=== PATIENT | male | born 1980 | race Caucasian/White ===

== ENCOUNTER 2018-01-09 23:54 | Emergency (ER) | payer SELFPAY ==
[2018-01-10 00:16] LABS: BILIRUBIN,URINE NEGATIVE (NEGATIVE); CLARITY,URINE VERY CLOUDY; COLOR,URINE AMBER; GLUCOSE, URINE (UA) NEGATIVE (NEGATIVE); KETONES,URINE NEGATIVE (NEGATIVE); LEUKOCYTE ESTERASE ,URINE 1+ (NEGATIVE); NITRITE,URINE NEGATIVE (NEGATIVE); PH,URINE 7 (5-9); PROTEIN,URINE NEGATIVE (NEGATIVE); UROBILINOGEN,URINE NORMAL (NORMAL)
[2018-01-10 00:25] LABS: BACTERIA,URINE FEW /HPF
[2018-01-10 00:26] LABS: BASOPHILS % (AUTO) 0 % (0-10); EOSINOPHILS # (AUTO) 0.1 10^3/uL (0.0-0.3); EOSINOPHILS % (AUTO) 1 % (0-10); HEMATOCRIT 43 % (40-54); HEMOGLOBIN 14.7 G/DL (13.3-17.7); LYMPHOCYTES # (AUTO) 2.6 X 10^3 (1.0-4.0); LYMPHOCYTES % (AUTO) 14 % (12-44); MEAN CORPUSCULAR HEMOGLOBIN 32 PG (25-34); MEAN CORPUSCULAR HGB CONC 35 G/DL (32-36); MEAN CORPUSCULAR VOLUME 92 FL (80-99); MEAN PLATELET VOLUME 9.8 FL (7.4-10.4); MONOCYTES # (AUTO) 1.2 X 10^3 (0.0-1.0); MONOCYTES % (AUTO) 6 % (0-12); NEUTROPHILS # (AUTO) 14.7 X 10^3 (1.8-7.8); NEUTROPHILS % (AUTO) 79 % (42-75); PLATELET COUNT 356 10^3/uL (130-400); RED BLOOD COUNT 4.63 10^6/uL (4.35-5.85); WHITE BLOOD COUNT 18.7 10^3/uL (4.3-11.0)
[2018-01-10 00:32] LABS: AMPHETAMINE SCREEN, URINE NEGATIVE (NEGATIVE); BARBITURATE SCREEN URINE NEGATIVE (NEGATIVE); BENZODIAZEPINES SCREEN URINE NEGATIVE (NEGATIVE); CANNABINOID SCREEN, URINE POSITIVE (NEGATIVE); COCAINE SCREEN URINE NEGATIVE (NEGATIVE); METHADONE STAT NEGATIVE (NEGATIVE); METHAMPHETAMINE SCREEN URINE S NEGATIVE (NEGATIVE); OPIATE SCREEN URINE NEGATIVE (NEGATIVE); OXYCODONE STAT NEGATIVE (NEGATIVE); PROPOXYPHENE STAT NEGATIVE (NEGATIVE); TRICYCLIC ANTIDEPRESSANTS SCRE NEGATIVE (NEGATIVE)
[2018-01-10 00:47] LABS: ALANINE AMINOTRANSFERASE 14 U/L (0-55); ALBUMIN 4.3 GM/DL (3.2-4.5); ALKALINE PHOSPHATASE 45 U/L (40-136); BILIRUBIN,TOTAL 0.5 MG/DL (0.1-1.0); BUN/CREATININE RATIO 12; CARBON DIOXIDE 20 MMOL/L (21-32); CHLORIDE 110 MMOL/L (98-107); CREATININE SERUM 0.74 MG/DL (0.60-1.30); GFR ESTIMATED > 60; GLUCOSE 109 MG/DL (70-105); MAGNESIUM 2.4 MG/DL (1.8-2.4); POTASSIUM 3.8 MMOL/L (3.6-5.0); SODIUM 141 MMOL/L (135-145); TOTAL PROTEIN 6.8 GM/DL (6.4-8.2)
[2018-01-10 00:49] LABS: LYMPHOCYTES % (MANUAL) 12 %; MONOCYTES % (MANUAL) 7 %; NEUTROPHILS % (MANUAL) 81 %
--- NOTE | 2018-01-10 01:09 | ED Respiratory ---
General Stated Complaint: SOB,CP Source: patient (VAGUE AND DIFFICULT HISTORIAN, AND EXTREMELY INCONSISTENT INFORMATION TO MY SELF AND NURSING STAFF. ), EMS History of Present Illness Date Seen by Provider: Jan 09, 2018 Time Seen by Provider: 23:57 Initial Comments PT ARRIVES VIA EMS PT STATES HE "TOOK 1 SHOT OF VODKA" AT 1300 TODAY, AND STATES "IT SENT ME INTO A COUGHING FIT" STATES HE HAS BEEN COUGHING ALL DAY--NON-PRODUCTIVE EMS GAVE DUONEB ENROUTE, EVEN THOUGH PT REPORTEDLY HAD CLEAR LUNG SOUNDS AT SCENE. PT STATES HE FEELS BETTER O2 SATS 97-99% ON ROOM AIR. PT DOES NOT VOLUNTARILY C/O CHEST PAIN OR SHORTNESS OF BREATH, UNTIL I DIRECTLY ASKED HIM IF HE HAD CHEST PAIN OR SHORTNESS OF BREATH AND HE STATES HE HAS " BOTH REALLY BAD" PT TELLS ME ADAMANTLY SEVERAL TIMES THAT HE HAS NEVER HAD ANY HISTORY OF ANY LUNG PROBLEMS, AND SPECIFICALLY DENIES HISTORY OF ASTHMA, COPD/EMPHYSEMA, BRONCHITIS OR PNEUMONIA. PT TOLD RN THAT HE DOES HAVE A HISTORY OF ASTHMA PT CLAIMS THAT HE HAS NEVER BEEN PRESCRIBED OR USED AN INHALER, DESPITE A DIAGNOSIS OF "ASTHMA" PT CONTINUES TO SMOKE 1 PPD PT ALSO HAS HISTORY OF ALCOHOL ABUSE--STATES HE HAS NOT HAD ANY ALCOHOL RECENTLY BUT NORMALLY DRINKS 1/5 OF VODKA A DAY. PT ADAMANTLY DENIES ANY HISTORY AT ALL OF DRUG USE TO ME, BUT ADMITS TO DRUG USE TO RN. PT ALSO STATES THAT HE WAS DIAGNOSED WITH "LUNG CANCER" AT [facility] 2 WEEKS AGO, BUT WAS NOT GIVEN ANY MEDICATIONS, OR REFERRED TO ANY DR FOR THIS PROBLEM. PT STATES HE "JUST SHOWED UP HERE 3 WEEKS AGO" --FROM [place], [place]. PT STATES HE CAME HERE TO SEE HIS "" Allergies and Home Medications Allergies Coded Allergies: No Allergy Information Available (Unverified , 01/09/18) Patient Home Medication List Home Medication List Reviewed: Yes Review of Systems Review of Systems Constitutional: no symptoms reported; No fever EENTM: no symptoms reported Respiratory: see HPI, cough, short of breath, wheezing Cardiovascular: see HPI, chest pain Gastrointestinal: no symptoms reported; No nausea, No vomiting Genitourinary: no symptoms reported Musculoskeletal: no symptoms reported Skin: no symptoms reported Psychiatric/Neurological: No Symptoms Reported Hematologic/Lymphatic: No Symptoms Reported Immunological/Allergic: no symptoms reported Past Xzfvwiy-Pybkzi-Itaeqt Hx Patient Social History Alcohol Use: Regular Use (1/5 VODKA/DAY) Recreational Drug Use: Yes (TESTED + FOR THC 01/10/18) Drug of Choice: THC Smoking Status: Current Everyday Smoker (1 PPD) Type Used: Cigarettes (1 PPD) Recent Foreign Travel: No Contact w/Someone Who Travel: No Past Medical History Surgeries: Yes Gallbladder Respiratory: Yes Asthma, COPD Cardiac: No Neurological: No Genitourinary: No Gastrointestinal: No Musculoskeletal: No Endocrine: No Psychosocial: No Integumentary: No Blood Disorders: No Physical Exam Capillary Refill : Height: '" Weight: lbs. oz. kg; BMI Method: General Appearance: WD/WN, no apparent distress, other (DOES NOT MAKE EYE CONTACT AT ANY TIME DURING ER STAY AND MOSTLY KEEPS EYES CLOSED. PT REEKS OF CIGARETTES. DOES NOT APPEAR TO BE IN ANY DISCOMFORT WHATSOEVER. NO COUGH NOTED AT ANY TIME. ) HEENT: PERRL/EOMI Neck: normal inspection Respiratory: chest non-tender, normal breath sounds, no respiratory distress, no accessory muscle use Cardiovascular: normal peripheral pulses, regular rate, rhythm, no edema, no JVD, no murmur Gastrointestinal: normal bowel sounds, non tender Extremities: normal range of motion, non-tender, normal inspection, no pedal edema, no calf tenderness, normal capillary refill Neurologic/Psychiatric: invasive cardiovascular technologist II-XII nml as tested, no motor/sensory deficits, alert, oriented x 3 Skin: normal color, warm/dry Progress/Results/Core Measures Suspected Sepsis SIRS Temperature: Pulse: Respiratory Rate: Laboratory Tests 01/09/18 00:16: White Blood Count 18.7H Blood Pressure / Mean: Laboratory Tests 01/09/18 00:16: Creatinine 0.74, Platelet Count 356, Total Bilirubin 0.5 Results/Orders Lab Results Laboratory Tests Test 01/09/18 00:05 01/09/18 00:16 Range/Units Urine Color HUGO H Urine Clarity VERY CLOUDY H Urine pH 7 5-9 Urine Specific [place] 1.010 L 1.016-1.022 Urine Protein NEGATIVE NEGATIVE Urine Glucose (UA) NEGATIVE NEGATIVE Urine Ketones NEGATIVE NEGATIVE Urine Nitrite NEGATIVE NEGATIVE Urine Bilirubin NEGATIVE NEGATIVE Urine Urobilinogen NORMAL NORMAL MG/DL Urine Leukocyte Esterase 1+ H NEGATIVE Urine RBC (Auto) NEGATIVE NEGATIVE Urine RBC NONE /HPF Urine WBC 10-25 H /HPF Urine Squamous Epithelial Cells 2-5 /HPF Urine Crystals NONE /LPF Urine Bacteria FEW H /HPF Urine Casts NONE /LPF Urine Mucus SMALL H /LPF Urine Culture Indicated YES Urine Opiates Screen NEGATIVE NEGATIVE Urine Oxycodone Screen NEGATIVE NEGATIVE Urine Methadone Screen NEGATIVE NEGATIVE Urine Propoxyphene Screen NEGATIVE NEGATIVE Urine Barbiturates Screen NEGATIVE NEGATIVE Ur Tricyclic Antidepressants Screen NEGATIVE NEGATIVE Urine Phencyclidine Screen NEGATIVE NEGATIVE Urine Amphetamines Screen NEGATIVE NEGATIVE Urine Methamphetamines Screen NEGATIVE NEGATIVE Urine Benzodiazepines Screen NEGATIVE NEGATIVE Urine Cocaine Screen NEGATIVE NEGATIVE Urine Cannabinoids Screen POSITIVE H NEGATIVE White Blood Count 18.7 H 4.3-11.0 10^3/uL Red Blood Count 4.63 4.35-5.85 10^6/uL Hemoglobin 14.7 13.3-17.7 G/DL Hematocrit 43 40-54 % Mean Corpuscular Volume 92 80-99 FL Mean Corpuscular Hemoglobin 32 25-34 PG Mean Corpuscular Hemoglobin Concent 35 32-36 G/DL Red Cell Distribution Width 14.0 10.0-14.5 % Platelet Count 356 130-400 10^3/uL Mean Platelet Volume 9.8 7.4-10.4 FL Neutrophils (%) (Auto) 79 H 42-75 % Lymphocytes (%) (Auto) 14 12-44 % Monocytes (%) (Auto) 6 0-12 % Eosinophils (%) (Auto) 1 0-10 % Basophils (%) (Auto) 0 0-10 % Neutrophils # (Auto) 14.7 H 1.8-7.8 X 10^3 Lymphocytes # (Auto) 2.6 1.0-4.0 X 10^3 Monocytes # (Auto) 1.2 H 0.0-1.0 X 10^3 Eosinophils # (Auto) 0.1 0.0-0.3 10^3/uL Basophils # (Auto) 0.0 0.0-0.1 10^3/uL Neutrophils % (Manual) 81 % Lymphocytes % (Manual) 12 % Monocytes % (Manual) 7 % Sodium Level 141 135-145 MMOL/L Potassium Level 3.8 3.6-5.0 MMOL/L Chloride Level 110 H 98-107 MMOL/L Carbon Dioxide Level 20 L 21-32 MMOL/L Anion Gap 11 5-14 MMOL/L Blood Urea Nitrogen 9 7-18 MG/DL Creatinine 0.74 0.60-1.30 MG/DL Estimat Glomerular Filtration Rate > 60 BUN/Creatinine Ratio 12 Glucose Level 109 H 70-105 MG/DL Calcium Level 9.0 8.5-10.1 MG/DL Corrected Calcium 8.8 8.5-10.1 MG/DL Magnesium Level 2.4 1.8-2.4 MG/DL Total Bilirubin 0.5 0.1-1.0 MG/DL Aspartate Amino Transf (AST/SGOT) 22 5-34 U/L Alanine Aminotransferase (ALT/SGPT) 14 0-55 U/L Alkaline Phosphatase 45 40-136 U/L Troponin I < 0.30 <0.30 NG/ML B-Type Natriuretic Peptide 40.6 <100.0 PG/ML Total Protein 6.8 6.4-8.2 GM/DL Albumin 4.3 3.2-4.5 GM/DL Serum Alcohol < 10 <10 MG/DL My Orders Orders - TEE LAZO DO Saline Lock/Iv-Start (01/09/18 23:58) Ekg Tracing (01/09/18 23:58) Monitor-Rhythm Ecg Trace Only (01/09/18 23:58) Alcohol (01/09/18 23:58) BNP (01/09/18 23:58) Cbc With Automated Diff (01/09/18 23:58) Comprehensive Metabolic Panel (01/09/18 23:58) Drug Screen Stat (Urine) (01/09/18 23:58) Magnesium (01/09/18 23:58) Troponin I (01/09/18 23:58) Ua Culture If Indicated (01/09/18 23:58) Blood Culture (01/09/18 23:58) Chest Pa/Lat (2 View) (01/10/18 00:01) Urine Culture (01/09/18 00:05) Manual Differential (01/09/18 00:16) Vital Signs/I&O Capillary Refill : Progress Note : Progress Note PT HAD NO COUGH OR SHORTNESS OF BREATH OR CHEST PAIN AT ANY TIME DURING ER STAY FEMALE S.O. ARRIVES LATER AND IS IN AND OUT OF PT'S ROOM, AND IN AND OUT OF ER MULTIPLE TIMES THROUGHOUT PT'S STAY. CRITICAL PT IN ER, AND PT DECIDED TO SIGN OUT AMA, PRIOR TO MY REVIEWING ALL OF HIS TEST RESULTS WITH HIM. PT LEFT WITH FEMALE S.O. ECG Initial ECG Impression Date: Jan 10, 2018 Initial ECG Impression Time: 00:11 Initial ECG Rate: 69 Initial ECG Rhythm: Normal Sinus Initial ECG Comparisson: No Previous ECG Available Diagnostic Imaging Comments CXR--NO ACUTE PROCESS, PENDING RADIOLOGIST REVIEW Reviewed: Reviewed by Me Departure Impression Primary Impression: Left against medical advice Disposition: 07 AGAINST MEDICAL ADVICE Condition: Against Medical Advice Departure-Patient Inst. Referrals: UNKNOWN (PCP/Family) Primary Care Physician TEE LAZO DO Jan 10, 2018 01:09
--- NOTE | 2018-01-10 06:39 | Diagnostic Imaging Report ---
INDICATION: Cough and congestion. Portable chest 1:09 AM FINDINGS: Heart size and pulmonary vascularity are normal. Lungs are clear. There are no effusions or pneumothoraces. IMPRESSION: Negative chest. Dictated by: Dictated on workstation # [id number]
== END 2018-01-10 02:25 | disposition left against medical advice (07) ==
LOC: ER 23:57
DX: R06.02 Shortness of breath (principal); R07.1 Chest pain on breathing; R05 Cough; C34.90 Malignant neoplasm of unspecified part of unspecified bronchus or lung; J44.9 Chronic obstructive pulmonary disease, unspecified; F12.10 Cannabis abuse, uncomplicated; F17.210 Nicotine dependence, cigarettes, uncomplicated
CPT/HCPCS: 36415; 71046; 80053; 80306; 80320; 81000; 83735; 83880; 84484; 85007; 85027; 87040; 87077; 87088; 93005

== ENCOUNTER 2018-01-22 18:24 | Emergency (ER) | payer SELFPAY ==
[~2018-01-22] VITALS: Ht 180.3 cm; Wt 93.4 kg
[2018-01-22 18:59] LABS: BASOPHILS # (AUTO) 0.1 10^3/uL (0.0-0.1); BASOPHILS % (AUTO) 0 % (0-10); EOSINOPHILS # (AUTO) 0.2 10^3/uL (0.0-0.3); EOSINOPHILS % (AUTO) 1 % (0-10); HEMATOCRIT 46 % (40-54); HEMOGLOBIN 16.3 G/DL (13.3-17.7); LYMPHOCYTES # (AUTO) 3.6 X 10^3 (1.0-4.0); LYMPHOCYTES % (AUTO) 24 % (12-44); MEAN CORPUSCULAR HEMOGLOBIN 32 PG (25-34); MEAN CORPUSCULAR HGB CONC 35 G/DL (32-36); MEAN CORPUSCULAR VOLUME 92 FL (80-99); MEAN PLATELET VOLUME 9.4 FL (7.4-10.4); MONOCYTES # (AUTO) 1.4 X 10^3 (0.0-1.0); MONOCYTES % (AUTO) 9 % (0-12); NEUTROPHILS % (AUTO) 66 % (42-75); PLATELET COUNT 383 10^3/uL (130-400); RED BLOOD COUNT 5.06 10^6/uL (4.35-5.85); RED CELL DISTRIBUTION WIDTH 14.1 % (10.0-14.5); WHITE BLOOD COUNT 15.2 10^3/uL (4.3-11.0)
[2018-01-22] MEDS ORDERED: PANTOPRAZOLE 40 MG (PROTONIX) VIAL IV ONE (19:00)
[2018-01-22] MEDS ORDERED: ORPHENADRINE 60 MG/2 ML (NORFLEX) AMP IV ONE (19:00)
[2018-01-22] MEDS ORDERED: ONDANSETRON 4 MG/2 ML (SDV) Z0FRAN IVP ONE (19:00)
[2018-01-22] MEDS ORDERED: NS IV 1000 ML 1,000 ML IV SCH (19:00)
--- NOTE | 2018-01-22 19:00 | ED General ---
General Chief Complaint: Abdominal/GI Problems Stated Complaint: VOMITING/L HIP PAIN Nursing Triage Note: PT PRESENTS TO ER WITH COMPLAINT OF LEFT HIP PAIN AND NAUSEA/VOMITING. Nursing Sepsis Screen: No Definite Risk Source of Information: Patient Exam Limitations: No Limitations History of Present Illness Date Seen by Provider: Jan 22, 2018 Time Seen by Provider: 18:56 Initial Comments To ER accompanied by his and his 's cousin with reports of nausea vomiting hematemesis and diarrhea since this morning. The symptoms began at about 6 AM. He had some alcohol to drink last night but that is the only time he ever drinks and he has not had alcohol for very long time prior to this according to his . He also has left hip pain that he awakened with this morning. The pain is anterior lateral left hip. No known injury. Also believes his asthma is flaring up as he feels more short of breath. However, immediately after checking in with the registration desk he went outside to smoke a cigarette. Timing/Duration: 12-24 Hours Severity: Moderate Associated Systoms: Nausea/Vomiting Allergies and Home Medications Allergies Coded Allergies: No Allergy Information Available (Unverified , 01/09/18) Patient Home Medication List Home Medication List Reviewed: Yes Review of Systems Review of Systems Constitutional: see HPI EENTM: see HPI Respiratory: no symptoms reported Cardiovascular: no symptoms reported Gastrointestinal: diarrhea, nausea, vomiting, other (hematemesis) Genitourinary: no symptoms reported Musculoskeletal: see HPI, joint pain Skin: no symptoms reported Psychiatric/Neurological: No Symptoms Reported Past Vaxbbtz-Clknzu-Dceloo Hx Patient Social History Alcohol Use: Occasionally Uses Recreational Drug Use: No Drug of Choice: THC Smoking Status: Current Everyday Smoker Type Used: Cigarettes Recent Foreign Travel: No Contact w/Someone Who Travel: No Recent Infectious Disease Expo: No Immunizations Up To Date Tetanus Booster (TDap): Unknown PED Vaccines UTD: Yes Past Medical History Surgeries: Yes Gallbladder Respiratory: Yes Asthma, COPD Cardiac: No Neurological: No Genitourinary: No Gastrointestinal: No Musculoskeletal: No Endocrine: No Psychosocial: Yes Integumentary: No Blood Disorders: No Physical Exam Vital Signs Vital Signs - First Documented 01/22/18 18:42 Temp 99.6 Pulse 88 Resp 20 B/P (MAP) 140/95 (110) Pulse Ox 96 O2 Delivery Room Air Capillary Refill : Less Than 3 Seconds Height, Weight, BMI Height: 5'11.00" Weight: 206lbs. oz. 93.228778vb; BMI Method:Stated General Appearance: No Apparent Distress, WD/WN Eyes: Bilateral Eye Normal Inspection, Bilateral Eye PERRL, Bilateral Eye EOMI HEENT: PERRL/EOMI, TMs Normal, Normal ENT Inspection, Pharynx Normal Neck: Full Range of Motion, Normal Inspection Respiratory: No Rhonci, No Stridor, No Wheezing Cardiovascular: Regular Rate, Rhythm, Normal Peripheral Pulses Gastrointestinal: Normal Bowel Sounds, Soft, Tenderness Extremity: Normal Capillary Refill, Normal Inspection Neurologic/Psychiatric: Alert, Oriented x3 Skin: Normal Color, Warm/Dry Progress/Results/Core Measures Suspected Sepsis Recent Fever Within 48 Hours: No Infection Criteria Present: None New/Unexplained Altered Menta: No Sepsis Screen: No Definite Risk SIRS Temperature:99.6 Pulse: 88 Respiratory Rate: 20 Laboratory Tests 01/22/18 18:52: White Blood Count 15.2H Blood Pressure 140 /95 Mean: 110 Laboratory Tests 01/22/18 18:52: Creatinine 0.99, INR Comment 1.0, Platelet Count 383, Total Bilirubin 0.6 Results/Orders Lab Results Laboratory Tests Test 01/22/18 18:52 01/22/18 19:31 Range/Units White Blood Count 15.2 H 4.3-11.0 10^3/uL Red Blood Count 5.06 4.35-5.85 10^6/uL Hemoglobin 16.3 13.3-17.7 G/DL Hematocrit 46 40-54 % Mean Corpuscular Volume 92 80-99 FL Mean Corpuscular Hemoglobin 32 25-34 PG Mean Corpuscular Hemoglobin Concent 35 32-36 G/DL Red Cell Distribution Width 14.1 10.0-14.5 % Platelet Count 383 130-400 10^3/uL Mean Platelet Volume 9.4 7.4-10.4 FL Neutrophils (%) (Auto) 66 42-75 % Lymphocytes (%) (Auto) 24 12-44 % Monocytes (%) (Auto) 9 0-12 % Eosinophils (%) (Auto) 1 0-10 % Basophils (%) (Auto) 0 0-10 % Neutrophils # (Auto) 10.0 H 1.8-7.8 X 10^3 Lymphocytes # (Auto) 3.6 1.0-4.0 X 10^3 Monocytes # (Auto) 1.4 H 0.0-1.0 X 10^3 Eosinophils # (Auto) 0.2 0.0-0.3 10^3/uL Basophils # (Auto) 0.1 0.0-0.1 10^3/uL Neutrophils % (Manual) 72 % Lymphocytes % (Manual) 26 % Monocytes % (Manual) 0 % Eosinophils % (Manual) 2 % Basophils % (Manual) 0 % Band Neutrophils 0 % Blood Morphology Comment NORMAL Prothrombin Time 13.5 12.2-14.7 SEC INR Comment 1.0 0.8-1.4 Sodium Level 140 135-145 MMOL/L Potassium Level 3.8 3.6-5.0 MMOL/L Chloride Level 107 98-107 MMOL/L Carbon Dioxide Level 21 21-32 MMOL/L Anion Gap 12 5-14 MMOL/L Blood Urea Nitrogen 23 H 7-18 MG/DL Creatinine 0.99 0.60-1.30 MG/DL Estimat Glomerular Filtration Rate > 60 BUN/Creatinine Ratio 23 Glucose Level 116 H 70-105 MG/DL Calcium Level 10.0 8.5-10.1 MG/DL Corrected Calcium 8.5-10.1 MG/DL Total Bilirubin 0.6 0.1-1.0 MG/DL Aspartate Amino Transf (AST/SGOT) 15 5-34 U/L Alanine Aminotransferase (ALT/SGPT) 17 0-55 U/L Alkaline Phosphatase 62 40-136 U/L Total Protein 7.8 6.4-8.2 GM/DL Albumin 4.6 H 3.2-4.5 GM/DL Lipase 29 8-78 U/L Serum Alcohol < 10 <10 MG/DL Urine Color YELLOW Urine Clarity CLEAR Urine pH 5 5-9 Urine Specific [place] 1.025 H 1.016-1.022 Urine Protein 2+ H NEGATIVE Urine Glucose (UA) NEGATIVE NEGATIVE Urine Ketones 1+ H NEGATIVE Urine Nitrite NEGATIVE NEGATIVE Urine Bilirubin NEGATIVE NEGATIVE Urine Urobilinogen 1 NORMAL MG/DL Urine Leukocyte Esterase 2+ H NEGATIVE Urine RBC (Auto) NEGATIVE NEGATIVE Urine RBC NONE /HPF Urine WBC 2-5 /HPF Urine Squamous Epithelial Cells 5-10 /HPF Urine Crystals PRESENT H /LPF Urine Calcium Oxalate Crystals FEW H /LPF Urine Bacteria NEGATIVE /HPF Urine Casts PRESENT /LPF Urine Hyaline Casts 2-5 H /LPF Urine Mucus LARGE H /LPF Urine Culture Indicated NO My Orders Orders - VAHE FOSTER APRN Cbc With Automated Diff (01/22/18 18:53) Comprehensive Metabolic Panel (01/22/18 18:53) Lipase (01/22/18 18:53) Ua Culture If Indicated (01/22/18 18:53) Hip, Left, 2 Views (01/22/18 18:53) Iv Heplock-Insert (Order) (01/22/18 18:53) Protime With Inr (01/22/18 18:53) Pantoprazole Injection (Protonix Injecti (01/22/18 19:00) Ondansetron Injection (Zofran Injectio (01/22/18 19:00) Ns Iv 1000 Ml (Sodium Chloride 0.9%) (01/22/18 19:00) Orphenadrine Injection (Norflex Injectio (01/22/18 19:00) Alcohol (01/22/18 18:55) Manual Differential (01/22/18 18:52) Chest Pa/Lat (2 View) (01/22/18 19:01) Ct Abdomen/Pelvis W (01/22/18 19:20) Iohexol Injection (Omnipaque 350 Mg/Ml 1 (01/22/18 20:00) Ns (Ivpb) (Sodium Chloride 0.9%) (01/22/18 20:00) Medications Given in ED Current Medications Medications Dose Ordered Sig/Keli Route Start Time Stop Time Status Last Admin Dose Admin Iohexol 100 ml ONCE ONCE IV 01/22/18 20:00 01/22/18 20:01 DC 01/22/18 19:56 100 ML Ondansetron HCl 8 mg ONCE ONCE IVP 01/22/18 19:00 01/22/18 19:01 DC 01/22/18 19:11 8 MG Orphenadrine Citrate 30 mg ONCE ONCE IV 01/22/18 19:00 01/22/18 19:01 DC 01/22/18 19:11 30 MG Pantoprazole 80 mg ONCE ONCE IV 01/22/18 19:00 01/22/18 19:01 DC 01/22/18 19:11 80 MG Sodium Chloride 250 ml ONCE ONCE IV 01/22/18 20:00 01/22/18 20:01 DC 01/22/18 19:56 80 ML Vital Signs/I&O 01/22/18 18:42 Temp 99.6 Pulse 88 Resp 20 B/P (MAP) 140/95 (110) Pulse Ox 96 O2 Delivery Room Air Capillary Refill : Less Than 3 Seconds Blood Pressure Mean: 110 Departure Communication (Admissions) 2044 and discussed the case with Dr. Harris on-call for surgery. Since this gentleman has not vomited here, nausea is better, hemoglobin is stable and vitals are stable and there is no abnormality on the CT abdomen and pelvis we will discharged home on PPI, follow-up in one week with Dr. Harris to schedule EGD. Impression Primary Impression: Hematemesis Additional Impression: Left hip pain Disposition: AGAINST MEDICAL ADVICE Condition: Improved Departure-Patient Inst. Decision time for Depature: 20:41 Referrals: NO,LOCAL PHYSICIAN (PCP) Primary Care Physician LUIS HARRIS DO Patient Instructions: Gastritis Add. Discharge Instructions: 1. Call Dr. Harris's office tomorrow to make an appointment to be seen within 1 week to schedule an EGD which is a scope or they put a camera down her esophagus into her stomach to evaluate for any ulcers or bleeding causes. In the meantime take the acid want ad receiver as directed. Return to ER for any lightheadedness or worsening symptoms. All discharge instructions reviewed with patient and/or family. Voiced understanding. Scripts Pantoprazole Sodium (Protonix) 40 Mg Tablet. 40 MG PO DAILY, #20 TAB Prov: VAHE FOSTER APRN 01/22/18 VAHE FOSTER APRN Jan 22, 2018 19:00
[2018-01-22 19:13] LABS: PROTHROMBIN TIME PATIENT 13.5 SEC (12.2-14.7)
[2018-01-22 19:20] LABS: ALANINE AMINOTRANSFERASE 17 U/L (0-55); ALBUMIN 4.6 GM/DL (3.2-4.5); ALKALINE PHOSPHATASE 62 U/L (40-136); BILIRUBIN,TOTAL 0.6 MG/DL (0.1-1.0); BUN/CREATININE RATIO 23; CARBON DIOXIDE 21 MMOL/L (21-32); CHLORIDE 107 MMOL/L (98-107); CREATININE SERUM 0.99 MG/DL (0.60-1.30); GFR ESTIMATED > 60; GLUCOSE 116 MG/DL (70-105); LIPASE 29 U/L (8-78); POTASSIUM 3.8 MMOL/L (3.6-5.0); SODIUM 140 MMOL/L (135-145); TOTAL PROTEIN 7.8 GM/DL (6.4-8.2)
[2018-01-22 19:22] LABS: BAND NEUTROPHILS 0 %; BASOPHILS % (MANUAL) 0 %; EOSINOPHILS % (MANUAL) 2 %; LYMPHOCYTES % (MANUAL) 26 %; MONOCYTES % (MANUAL) 0 %; NEUTROPHILS % (MANUAL) 72 %
[2018-01-22 19:23] LABS: RBC MORPH NORMAL
--- NOTE | 2018-01-22 19:40 | Diagnostic Imaging Report ---
CHEST PA/LAT (2 VIEW) Indication: Cough and shortness of air. Comparison: 01/10/2018 Findings: No focal pneumonic consolidation, pleural effusion or pneumothorax. Normal heart size and pulmonary vasculature. Impression: No acute cardiopulmonary process. Dictated by: Dictated on workstation # [id number]
[2018-01-22 19:43] LABS: BILIRUBIN,URINE NEGATIVE (NEGATIVE); CLARITY,URINE CLEAR; COLOR,URINE YELLOW; GLUCOSE, URINE (UA) NEGATIVE (NEGATIVE); KETONES,URINE 1+ (NEGATIVE); LEUKOCYTE ESTERASE ,URINE 2+ (NEGATIVE); NITRITE,URINE NEGATIVE (NEGATIVE); PH,URINE 5 (5-9); PROTEIN,URINE 2+ (NEGATIVE); UROBILINOGEN,URINE 1 MG/DL (NORMAL)
--- NOTE | 2018-01-22 19:43 | Diagnostic Imaging Report ---
INDICATION: Left hip pain. COMPARISON: None available. TECHNIQUE: AP and frog-leg lateral views of the left hip. FINDINGS: No acute fracture or malalignment. No acetabular retroversion. Normal femoral head neck offset. Joint spaces are well preserved. No focal osseous lesion. IMPRESSION: Normal left hip radiographs. Dictated by: Dictated on workstation # [id number]
[2018-01-22 19:57] LABS: BACTERIA,URINE NEGATIVE /HPF
[2018-01-22 19:58] LABS: CALCIUM OXALATE CRYSTALS,UR FEW /LPF
[2018-01-22] MEDS ORDERED: IOHEXOL 350 MG/ML 100 ML (OMNIPAQUE 350) VIAL IV ONE (20:00)
[2018-01-22] MEDS ORDERED: NS 250 ML (IVPB) BAG IV ONE (20:00)
--- NOTE | 2018-01-22 20:17 | Diagnostic Imaging Report ---
PROCEDURE: CT abdomen and pelvis with contrast. TECHNIQUE: Multiple contiguous axial images were obtained through the abdomen and pelvis after administration of intravenous contrast. INDICATION: Pelvic pain COMPARISON: None available. FINDINGS: Lower chest: The lung bases are clear. No pericardial or pleural effusion. Peritoneum: No free intraperitoneal air or fluid. Liver and biliary system: The liver is normal. Gallbladder is not visualized and may be surgically absent. No biliary duct dilatation. Spleen and Pancreas: Spleen is normal. The pancreas enhances normally without mass lesion or peripancreatic inflammatory changes. Adrenals: Normal. tract: The kidneys enhance normally without suspicious mass or obstruction. Urinary bladder is distended without wall thickening. Prostate is not enlarged. GI tract: Stomach is decompressed. No bowel obstruction. No pericolonic inflammatory changes. Normal appendix. Vasculature and Lymph nodes: Normal caliber aorta. No abdominal or pelvic lymphadenopathy. Musculoskeletal: No concerning osseous lesion. 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 This results in mild congenital narrowing of the spinal canal at this level. IMPRESSION: 1. No acute obstructive or inflammatory process in the abdomen or pelvis. 2. No acute osseous abnormality in the pelvis or left hip. Dictated by: Dictated on workstation # [id number]
[2018-01-22] MEDS ORDERED: PANT40TA2 PO (20:42)
[2018-01-22] MEDS ORDERED: RX-ONDANSETRON 4 MG ODT (ZOFRAN) PPK #4 PO STA (20:42)
[2018-01-22] MEDS ORDERED: RX-HYDROCODONE/APAP 5/325 MG #4 TAB PK PO PRN (20:45)
[2018-01-22 21:00] VITALS: BP 135/88
== END 2018-01-22 21:00 | disposition left against medical advice (07) ==
LOC: ER 18:24 → EDUNIT# 18:24 → ER 18:34
DX: K92.0 Hematemesis (principal); M25.552 Pain in left hip; J44.9 Chronic obstructive pulmonary disease, unspecified; F12.10 Cannabis abuse, uncomplicated; F17.210 Nicotine dependence, cigarettes, uncomplicated; Z98.890 Other specified postprocedural states
CPT/HCPCS: 36415; 71046; 73502; 74177; 80053; 80320; 81000; 83690; 85007; 85027; 85610

== ENCOUNTER 2018-02-28 12:38 | Emergency (ER) | payer SELFPAY ==
[~2018-02-28] VITALS: Ht 180.3 cm; Wt 93.4 kg
[~2018-02-28 12:38] MED LIST: PANT40TA2 PO
[2018-02-28] MEDS ORDERED: RT-ALBUTEROL/IPRATROPIUM 3 ML (DUONEB) VIAL INH ONE (13:00)
--- NOTE | 2018-02-28 13:18 | ED Cough/URI ---
General Chief Complaint: Respiratory Problems Stated Complaint: SOB Nursing Triage Note: PATIENT STATES THAT HE HAS HAD SOB X3 WEEKS ACOMPANIED BY A COUGH. HE STATES THAT IT HAS PROGRESSIVELY GOTTEN WORSE AND HE IS COUGHING UP BLOODY PHLEGM WHICH KEEPS HIM AWAKE AT NIGHT. HE SAW A DOCTOR AT [facility] AND STATES THEY SCHEDULED HIM FOR A SCOPE ON 03/10/18. Source: patient Exam Limitations: no limitations History of Present Illness Date Seen by Provider: Feb 28, 2018 Time Seen by Provider: 13:00 Initial Comments Patient is a 37-year-old male who presents to the emergency room with complaints of shortness of breath and cough that has progressively gotten worse. He reports that he has some bloody streaked phlegm and coughing keeps him awake at night. He sees [facility] and they have scheduled him for a bronchitis on 03/10/18. He checked in to the ER at the front window and immediately went outside to smoke a cigarette, nursing staff had to wait on him back to return back to the waiting room so that they could call him back to the exam room. He does not have labored breathing and is in no distress on arrival to the emergency room. Timing/Duration: week (3 weeks), getting worse, changing over time Severity/Quality: mild, productive cough, blood streaked sputum Prior Episodes/Possible Cause: chronic episodes Associated Symptoms: cough, shortness of breath Allergies and Home Medications Allergies Coded Allergies: No Allergy Information Available (Unverified , 01/09/18) Home Medications Albuterol Sulfate 1 Puff Puff, 2 PUFF IH Q4H 1 PUFF = 90 MCG Prescribed by: GAYLE MARTINEZ on 02/28/18 1319 Azithromycin 250 Mg Tablet, 250 MG PO UD TAKE 2 TABLETS TODAY, THEN TAKE 1 TABLET DAILY FOR 4 MORE DAYS Prescribed by: GAYLE MARTINEZ on 02/28/18 1319 Methylprednisolone 4 Mg Tab.ds.pk, 4 MG PO UD Prescribed by: GAYLE MARTINEZ on 02/28/18 1319 Pantoprazole Sodium 40 Mg Tablet.dr, 40 MG PO DAILY Prescribed by: VAHE FOSTER on 01/22/182041 Patient Home Medication List Home Medication List Reviewed: Yes Review of Systems Review of Systems Constitutional: see HPI; No chills, No fever Respiratory: see HPI, cough, phlegm, short of breath All Other Systems Reviewed Negative Unless Noted: Yes Past Pjpaecn-Smzuee-Xktcnz Hx Past Med/Social Hx: Reviewed Nursing Past Med/Soc Hx Patient Social History Alcohol Use: Denies Use Recreational Drug Use: No Drug of Choice: THC Smoking Status: Current Everyday Smoker Type Used: Cigarettes 2nd Hand Smoke Exposure: Yes Recent Foreign Travel: No Contact w/Someone Who Travel: No Recent Infectious Disease Expo: No Recent Hopitalizations: No Immunizations Up To Date Tetanus Booster (TDap): Unknown PED Vaccines UTD: Yes Seasonal Allergies Seasonal Allergies: No Past Medical History Surgeries: Yes Gallbladder Respiratory: Yes Asthma, COPD Cardiac: No Neurological: No Genitourinary: No Gastrointestinal: No Musculoskeletal: No Endocrine: No Psychosocial: Yes Bipolar, Depression Integumentary: No Blood Disorders: No Family Medical History Reviewed Nursing Family Hx Physical Exam Vital Signs - First Documented 02/28/18 12:50 Temp 97.2 Pulse 70 Resp 20 B/P (MAP) 146/102 (117) Pulse Ox 100 O2 Delivery Room Air Capillary Refill : Less Than 3 Seconds Height: 5'11.00" Weight: 206lbs. 0oz. [id number]; BMI Method:Stated General Appearance: WD/WN, no apparent distress Respiratory: chest non-tender, lungs clear, normal breath sounds, no respiratory distress, no accessory muscle use Cardiovascular: normal peripheral pulses, regular rate, rhythm, no edema, no gallop, no JVD, no murmur Neurologic/Psychiatric: alert, normal mood/affect Skin: normal color, warm/dry Progress/Results/Core Measures Suspected Sepsis Recent Fever Within 48 Hours: No Infection Criteria Present: Suspected New Infection New/Unexplained Altered Menta: No Sepsis Screen: No Definite Risk SIRS Temperature:97.2 Pulse: 70 Respiratory Rate: 20 Blood Pressure 146 /102 Mean: 117 Results/Orders My Orders Orders - BERNOT,GAYLE Albuterol/Ipra Inhalation Soln (Duoneb I (02/28/18 13:00) Svn Small Volume Nebulizer (02/28/18 12:54) Chest Pa/Lat (2 View) (02/28/18 12:54) Vital Signs/I&O 02/28/18 02/28/18 02/28/18 12:50 13:45 14:00 Temp 97.2 97.2 Pulse 70 70 Resp 20 20 B/P (MAP) 146/102 (117) 146/102 (117) Pulse Ox 100 100 100 O2 Delivery Room Air Room Air Room Air Capillary Refill : Less Than 3 Seconds Blood Pressure Mean: 117 Diagnostic Imaging Diagonstic Imaging: Xray Plain Films/CT/US/NM/MRI: chest Comments NAME: KRYSTEN COY MED REC#: [id number] PHYSICIAN: GAYLE MARTINEZ CC: GAYLE MARTINEZ; MATTI JOHNS Page 1 of 1 RADIOLOGY REPORT VIA [facility], [facility]. [place], [place] CC: GAYLE MARTINEZ; MATTI JOHNS Page 1 of 1 RADIOLOGY REPORT NAME: KRYSTEN COY MED REC#: [id number] PT STATUS: REG ER : 1980 PHYSICIAN: GAYLE MARTINEZ ADMIT DATE: 02/28/18/ER Signed Date of Exam: 02/28/18 CHEST PA/LAT (2 VIEW) INDICATION: Cough. COMPARISON: 01/22/2018. FINDINGS: Frontal and lateral views of the chest demonstrate clear lungs bilaterally. The heart is normal. There is no pneumothorax. The osseous structures normal. IMPRESSION: Negative chest. Dictated by: Dictated on workstation # [id number] Dict: 02/28/18 1318 Trans: 02/28/18 1324 Interpreted by: MATTI JOHNS Electronically signed by: MATTI JOHNS 02/28/18 1324 Reviewed: Reviewed by Ga Departure Impression Primary Impression: Bronchitis Disposition: 01 HOME, SELF-CARE Condition: Stable Departure-Patient Inst. Decision time for Depature: 13:17 Referrals: NO,LOCAL PHYSICIAN (PCP) Primary Care Physician Patient Instructions: Acute Bronchitis, Adult (DC) Add. Discharge Instructions: Take medications as directed. Keep your appointment for your bronchoscope on . Follow-up with [facility] within 1 week for recheck. Return back to the emergency room for any worsening symptoms or concerns as needed. All discharge instructions reviewed with patient and/or family. Voiced understanding. Scripts Albuterol Sulfate (PROAIR HFA) 1 Puff Puff 2 PUFF IH Q4H for Shortness of Breath, #30 PUFF 1 PUFF = 90 MCG Prov: GAYLE MARTINEZ 02/28/18 Azithromycin (Zithromax) 250 Mg Tablet 250 MG PO UD, #6 TAB TAKE 2 TABLETS TODAY, THEN TAKE 1 TABLET DAILY FOR 4 MORE DAYS Prov: GAYLE MARTINEZ 02/28/18 Methylprednisolone (Medrol) 4 Mg Tab.ds.pk 4 MG PO UD, #1 PKG Prov: GAYLE MARTINEZ 02/28/18 GAYLE MARTINEZ Feb 28, 2018 13:18
[2018-02-28] MEDS ORDERED: AZIT250T PO (13:19)
[2018-02-28] MEDS ORDERED: METH4TAB PO (13:19)
[2018-02-28] MEDS ORDERED: RT-ALBUINH IH (13:19)
--- NOTE | 2018-02-28 13:22 | Diagnostic Imaging Report ---
INDICATION: Cough. COMPARISON: 01/22/2018. FINDINGS: Frontal and lateral views of the chest demonstrate clear lungs bilaterally. The heart is normal. There is no pneumothorax. The osseous structures normal. IMPRESSION: Negative chest. Dictated by: Dictated on workstation # [id number]
[2018-02-28 14:00] VITALS: BP 146/102
== END 2018-02-28 14:00 | disposition home or self-care (01) ==
LOC: EDUNIT# 12:38 → ER 12:39
DX: J40 Bronchitis, not specified as acute or chronic (principal); J44.9 Chronic obstructive pulmonary disease, unspecified; F31.9 Bipolar disorder, unspecified; F12.10 Cannabis abuse, uncomplicated; F17.210 Nicotine dependence, cigarettes, uncomplicated; Z79.51 Long term (current) use of inhaled steroids; Z79.52 Long term (current) use of systemic steroids
CPT/HCPCS: 71046; 94640